=== PATIENT | male | born 1950 | race Caucasian/White ===

== ENCOUNTER 2016-06-24 12:51 | Emergency (ER) | payer MEDICAID ==
--- NOTE | 2016-06-24 14:40 | US ---
NECK SOFT TISSUE ULTRASOUND HISTORY: Rapidly increasing palpable abnormality. Sonography performed at the left submandibular fossa. Findings: A 4.9 x 3.5 x 2.8 cm ovoid hypoechoic mass lesion is noted with a hilar pattern of blood flow. This appears distinct from adjacent submandibular gland tissue, superolateral to the gland. IMPRESSION: 4.9 cm left submandibular mass lesion, abnormally enlarged lymph node favored over exophytic submandibular gland mass. Lymphoproliferative disease and inflammatory processes are possible. Recommend postcontrast CT assessment to further characterize cervical lymph nodes. Findings discussed with Dr. Arreaga of the Emergency Medicine clinical service on 06/24/2016 at 1436 hours.
== END 2016-06-24 15:14 | disposition home or self-care (01) ==
LOC: ED 12:51
DX: R22.1 Localized swelling, mass and lump, neck (principal); F17.210 Nicotine dependence, cigarettes, uncomplicated